=== PATIENT | male | born 2000 | race Caucasian/White ===

== ENCOUNTER 2020-09-24 19:49 | Emergency (ER) | payer OTHER ==
[~2020-09-24] VITALS: Ht 185.4 cm; Wt 84.1 kg
[2020-09-24 19:59] VITALS: TEMP 97.8
[2020-09-25 00:53] VITALS: BP 141/79; PULSE 75
== END 2020-09-25 00:53 | disposition home or self-care (01) ==
LOC: EDBD 19:49 → COL.ER 19:49
DX: S06.0X9A Concussion with loss of consciousness of unspecified duration, initial encounter (principal); S40.012A Contusion of left shoulder, initial encounter; W51.XXXA Accidental striking against or bumped into by another person, initial encounter; Y93.64 Activity, baseball